=== PATIENT | male | born 1960 | race Caucasian/White ===

== ENCOUNTER 2020-09-09 21:04 | Emergency (ER) | payer SELFPAY ==
[~2020-09-09] VITALS: Ht 185.4 cm; Wt 74.7 kg
[2020-09-09 22:41] VITALS: BP 137/87
[2020-09-09] MEDS ORDERED: ACETAMINOPHEN 500 MG TABLET PO ONE (23:00)
== END 2020-09-09 23:25 | disposition home or self-care (01) ==
LOC: EMS 21:04
DX: G89.29 Other chronic pain (principal); M79.672 Pain in left foot; I10 Essential (primary) hypertension; E78.00 Pure hypercholesterolemia, unspecified; Z59.0 Homelessness
CPT/HCPCS: 99283